=== PATIENT | female | born 1980 | race Caucasian/White ===

== ENCOUNTER 2023-11-21 19:36 | Emergency (ER) | payer MEDICAID ==
[~2023-11-21] VITALS: Ht 149.9 cm; Wt 69.7 kg
[2023-11-21] MEDS ORDERED: SULF1TAB45 PO (20:19)
[2023-11-21] MEDS ORDERED: CEPH-585 PO (20:19)
[2023-11-21 20:27] VITALS: BP 146/79; PULSE 103; RESP 18; TEMP 98; O2SAT 98
== END 2023-11-21 20:28 | disposition home or self-care (01) ==
LOC: ER 19:38
DX: L02.411 Cutaneous abscess of right axilla (principal); Z79.2 Long term (current) use of antibiotics
CPT/HCPCS: 99283